=== PATIENT | female | born 1975 | race Caucasian/White ===

== ENCOUNTER 2018-12-23 17:17 | Emergency (ER) | payer MEDICAID ==
[2018-12-23] MEDS: LIDOCAINE 1% (MDV) 10 ML INJ INJ (18:19)
[2018-12-23] MEDS: KETOROLAC 30 MG INJ IM (18:28)
== END 2018-12-23 19:08 | disposition home or self-care (01) ==
LOC: FTE 17:17
DX: S61.216A Laceration without foreign body of right little finger without damage to nail, initial encounter (principal); W25.XXXA Contact with sharp glass, initial encounter; Y92.9 Unspecified place or not applicable
CPT/HCPCS: 12001; 81025; 96372; 99284-25